=== PATIENT | male | born 1965 | race Caucasian/White ===

== ENCOUNTER 2019-07-02 09:35 | Emergency (ER) | payer BC ==
[~2019-07-02 09:35] MED LIST: OXYC-865 PO; PROM-110 PO
[2019-07-02] MEDS ORDERED: KETOROLAC 15 MG/ML VIAL IVP ONE (10:00)
[2019-07-02] MEDS ORDERED: ACETAMINOPHEN 500 MG TAB PO ONE (10:00)
--- NOTE | 2019-07-02 10:02 | ER Report ---
History and Physical Time Seen By MD: 09:51 Hx. of Stated Complaint: back and right arm pain HPI/ROS 54-year-old male with no significant past medical history who presents with s everal week history of right arm/shoulder discomfort. 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 He states that he has been having a dull ache worse with movement over the last 1-2 weeks was worse this morning when he woke up. He denies any left-sided chest pain, shortness of breath, exertional pain. Pain is significantly worse with movement of his right shoulder. He does not have any recent fevers, chills. No previous cardiac history. No direct trauma. Patient did take his 's cyclobenzaprine earlier this morning with no significant improvement in his symptoms. Allergies: Coded Allergies: No Known Drug Allergies (Unverified , 07/02/19) Home Meds Discontinued Reported Medications Oxycodone Hcl/Acetaminophen (PERCOCET 5-325 MG TABLET) 1 Each Tablet, 1-2 EACH PO Q4H PRN for PAIN, TAB 12/04/15 Discontinued Scripts Promethazine Hcl (PROMETHAZINE HCL) 25 Mg Tablet, 25 MG PO Q4H PRN for NAUSEA/VOMITING, #14 TAB Prov:NASRA YUENAmaury Hernandez DO 12/02/15 Oxycodone Hcl/Acetaminophen (PERCOCET 5-325 MG TABLET) 1 Each Tablet, 1-2 EACH PO Q4-6H PRN for pain, #30 Prov:NASRA YUENAmaury Hernandez DO 12/02/15 Reviewed Nurses Notes: Yes Old Medical Records Reviewed: Yes Hx Smoking: Yes (1 PPD X 32 YEARS) Smoking Status: Current: Every Day Smoker Hx Substance Use Disorder: No Hx Alcohol Use: Yes Constitutional Vital Sign - Last 24 Hours 07/02/19 07/02/19 07/02/19 07/02/19 09:36 09:42 10:05 10:23 Temp 97.5 Pulse 90 74 Resp 14 B/P (MAP) 210/136 (160) 210/136 192/125 (147) Pulse Ox 96 90 O2 Delivery Room Air 07/02/19 07/02/19 07/02/19 07/02/19 10:28 10:30 10:58 11:00 Pulse 76 75 Resp 19 14 B/P (MAP) 180/118 (138) 167/103 (124) Pulse Ox 90 91 Physical Exam General Appearance: Patient is awake and alert in no acute distress Respiratory: There are no retractions, lungs are clear to auscultation. Cardiovascular: Regular rate and rhythm.] Gastrointestinal: Abdomen is soft and non tender, no masses, bowel sounds normal. [Neurological:] No focal deficits. [Skin:] Warm and dry, no rashes. No lower extremity edema. [Musculoskeletal:] Pain with range of motion of his right shoulder including external rotation and abduction. There is no significant overlying erythema. The patient is able to actively range his shoulder. All other joints are nonpainful on full range of motion. Medical Decision Making Data Points Laboratory Chemistry Test 07/02/19 09:48 Troponin I < 0.012 ng/ml EKG/Imaging EKG Interpretation Normal sinus rhythm with sinus arrhythmia. Ventricular rate of 71. Intervals within normal limits. No significant ST or T-wave abnormalities concerning for ischemia. Monitor Interpretation: Normal Sinus Rhythm ED Course/Re-evaluation ED Course 54-year-old male with no significant past medical history who presents with worsening right shoulder pain over the last several weeks worse this morning. Patient is mechanically stable, afebrile. Physical exam is notable for pain in the right shoulder on external rotation as well as abduction. There is no overlying erythema, he has not febrile. He is able to actively range his right shoulder and therefore do not feel that this quickly represents septic arthritis. Given the patient has had significant overuse of the right arm with pitching for the [employer] team over the past month, high cli nical suspicion for repetitive microtrauma to his rotator cuff. Patient is neurovascularly intact otherwise and is not having any radicular symptoms concerning for potential cervical pathology. Given his age, we did obtain a screening EKG and a single troponin which is negative and therefore do not feel this represents an ACS equivalent. Discussed with patient that we will trial so me NSAIDs and lidocaine patch and have him follow up with primary care and physical therapy if he is still having pain. He is return to the emergency department if he develops any new or worsening symptoms. Patient and family were in agreement with discharge, follow-up, and return precautions. Decision to Disposition Date: Jul 02, 2019 Decision to Disposition Time: 11:25 Depart Departure Latest Vital Signs Vital Signs Date Time Temp Pulse Resp B/P (MAP) Pulse Ox O2 Delivery O2 Flow Rate FiO2 07/02/19 11:00 167/103 (124) 07/02/19 10:58 75 14 91 07/02/19 09:42 97.5 Room Air Impression: Primary Impression: Right shoulder pain Condition: Improved Disposition: HOME OR SELF-CARE Referrals: SAURABH YI MD New Scripts Omeprazole (OMEPRAZOLE) 20 Mg Capsule.dr 1 CAP PO BID for 10 Days, #20 CAP 0 Refills Prov: BRENNA PEREZ MD 07/02/19 Diclofenac Potassium (DICLOFENAC POTASSIUM) 50 Mg Tablet 50 MG PO BID for PAIN for 10 Days, #20 TAB 0 Refills Prov: BRENNA PEREZ MD 07/02/19 Departure Forms: ER Transition Record, Medications Reconciliation, Off Work/School Form, School or Work Release?: Work Number of days to be released: 2 Patient Portal Information Patient Instructions: Exercises for Shoulder Abduction and Adduction (ED) BRENNA PEREZ MD Jul 02, 2019 10:02
--- NOTE | 2019-07-02 10:44 | RADIOLOGY IMAGING REPORT ---
[place] [facility] [place] NAME[place] Jorge Luis Vogel : 1965 MR: [id number] V: [id number] EXAM DATE: ORDERING PHYSICIAN: BRENNA PEREZ TECHNOLOGIST: Location: [facility] - [place] Patient: Jorge Luis Vogel : 1965 Visit/Account:[id number] Date of Sevice: 07/02/2019 SHOULDER MIN 2 VIEWS RIGHT History: Right shoulder pain starting this morning. Comparison study: None. Findings: There is diffuse osteopenia but there is no finding of a fracture. There are minimal degenerative changes involving acromioclavicular joint. IMPRESSION: 1. Degenerative changes without findings of a fracture or dislocation. Report Dictated By: Josh Comer MD at 07/02/2019 10:36 AM Report E-Signed By: Josh Comer MD at 07/02/2019 10:37 AM WSN:[id number]
[2019-07-02 11:00] VITALS: BP 167/103
[2019-07-02] MEDS ORDERED: DICL-190 PO (11:30)
[2019-07-02] MEDS ORDERED: OMEP-126 PO (11:30)
--- NOTE | 2019-07-02 12:18 | EKG ---
FACILITY: [facility] - [place] PATIENT NAME: GELY WALTON : [id number] MR: [id number]: [id number] EXAM DATE: ORDERING PHYSICIAN: BRENNA PEREZ TECHNOLOGIST: SANIA Test Reason : ARM PAIN Blood Pressure : / mmHG Vent. Rate : 071 BPM Atrial Rate : 071 BPM P-R Int : 160 ms QRS Dur : 092 ms QT Int : 384 ms P-R-T Axes : 051 065 044 degrees QTc Int : 417 ms Sinus rhythm with marked sinus arrhythmia Otherwise normal ECG Confirmed by JOHAN MACIAS ([id number]) on 07/02/2019 6:14:18 PM Referred By: ANA Confirmed By:JOHAN MACIAS
== END 2019-07-02 11:42 | disposition home or self-care (01) ==
LOC: ER 10:23
DX: M25.511 Pain in right shoulder (principal); I49.9 Cardiac arrhythmia, unspecified
CPT/HCPCS: 73030; 84484; 93005; 99284; J1885; 96374

== ENCOUNTER 2019-07-03 23:42 | Emergency (ER) | payer BC ==
[~2019-07-03 23:42] MED LIST changes: +DICL-190 PO; +OMEP-126 PO
--- NOTE | 2019-07-03 23:54 | ER Report ---
History and Physical Time Seen By MD: 23:50 Hx. of Stated Complaint: possible pinched nerve in neck. has mri scheduled for tomorrow. pt has shooting pain down right arm. HPI/ROS CHIEF COMPLAINT: neck pain with shooting to right arm. HISTORY OF PRESENT ILLNESS: This is a 54 year old male. He has pain in the neck with shooting into right arm. Severe pain tonight, uncontrollable with spasming. Has MRI scheduled for this morning at [facility]. Started on steroids today, taking oxycodone left over from oral surgery without relief. Pain is becoming unbearable. Has some numbness in thumb. No weakness. Pain i mproves somewhat with placing arm overhead. Seems to worsen with movement of neck or shoulder. No fevers or chills. No loss of control of bowel or bladder function. No weakness in legs or arms/hands. Allergies: Coded Allergies: No Known Drug Allergies (Unverified , 07/02/19) Home Meds Active Scripts Hydromorphone Hcl (DILAUDID) 2 Mg Tablet, 1 MG PO Q4H PRN for PAIN, #8 TAB 0 Refills Prov:DENISE LIRA MD 07/04/19 Diazepam (VALIUM) 5 Mg Tablet, 5 MG PO Q6H PRN for MUSCLE SPASMS, #15 TAB 0 Refills Prov:DENISE LIRA MD 07/04/19 Omeprazole (OMEPRAZOLE) 20 Mg Capsule.dr, 1 CAP PO BID for 10 Days, #20 CAP 0 Refills Prov:BRENNA PEREZ MD 07/02/19 Diclofenac Potassium (DICLOFENAC POTASSIUM) 50 Mg Tablet, 50 MG PO BID for PAIN for 10 Days, #20 TAB 0 Refills Prov:BRENNA PEREZ MD 07/02/19 Discontinued Reported Medications Oxycodone Hcl/Acetaminophen (PERCOCET 5-325 MG TABLET) 1 Each Tablet, 1-2 EACH PO Q4H PRN for PAIN, TAB 12/04/15 Discontinued Scripts Promethazine Hcl (PROMETHAZINE HCL) 25 Mg Tablet, 25 MG PO Q4H PRN for NAUSEA/VOMITING, #14 TAB Prov:JA YUEN DO 12/02/15 Oxycodone Hcl/Acetaminophen (PERCOCET 5-325 MG TABLET) 1 Each Tablet, 1-2 EACH PO Q4-6H PRN for pain, #30 Prov:JA YUEN DO 12/02/15 Reviewed Nurses Notes: Yes Hx Smoking: Yes (1 PPD X 32 YEARS) Smoking Status: Current: Every Day Smoker Hx Substance Use Disorder: No Hx Alcohol Use: Yes Constitutional Vital Sign - Last 24 Hours 07/03/19 07/03/19 07/04/19 07/04/19 23:42 23:49 00:00 00:30 Temp 98.0 Pulse 90 Resp 20 B/P (MAP) 213/201 (205) 200/100 192/121 (144) 176/129 (145) Pulse Ox 97 O2 Delivery Room Air 07/04/19 07/04/19 07/04/19 07/04/19 00:42 01:00 01:30 02:00 Pulse 65 85 B/P (MAP) 179/111 (133) 184/126 (145) 150/127 (135) Pulse Ox 88 96 07/04/19 07/04/19 07/04/19 07/04/19 02:30 03:00 03:30 04:00 Pulse 78 59 B/P (MAP) 162/105 (124) 150/126 (134) 150/111 (124) 164/123 (137) Pulse Ox 93 95 94 93 07/04/19 07/04/19 07/04/19 07/04/19 04:30 05:00 05:05 05:30 Pulse 61 60 60 B/P (MAP) 158/118 (131) 169/112 (131) 162/115 (131) Pulse Ox 94 95 93 07/04/19 07/04/19 07/04/19 07/04/19 05:35 06:00 06:05 06:30 Pulse 59 60 B/P (MAP) 153/101 (118) 156/102 (120) Pulse Ox 95 95 07/04/19 06:35 Pulse 65 Pulse Ox 92 Intake and Output 07/03/19 07/03/19 07/04/19 15:03 23:03 07:03 Intake Total 2000 ml Balance 2000 ml Physical Exam General Appearance: The patient is alert. No acute distress. Eyes: Pupils are equal, round. No pallor, injection or icterus. ENT: Mucous membranes are moist. Normal oral mucosa. Posterior oropharynx is normal. Neck: Supple and non tender. Respiratory: Lungs are clear to auscultation. Cardiovascular: Regular rate and rhythm. No murmurs, gallops or rubs. Normal capillary refill. Normal peripheral pulse. Neurological: Alert and oriented x3. Normal sensation in hand/arm other than tip of right thumb. Normal in legs. Equal strength in arms/membership advisor. Skin: Warm and dry. No rashes. Musculoskeletal: Extremities are nontender to palpation. No tenderness in palp ation of the shoulder, but some near the cervical spine. DIFFERENTIAL DIAGNOSIS: After history and physical exam, differential diagnosis was considered for pain in right arm, appears most likely to be radicular pain. Medical Decision Making Data Points Result Diagram: 07/04/19 0016 07/04/19 0016 Laboratory Hematology Test 07/04/19 00:16 White Blood Count 10.5 k/uL (4.5-11.0) Red Blood Count 5.64 M/uL (4.00-5.60) H Hemoglobin 18.1 g/dL (14.0-18.0) H Hematocrit 51.6 % (42.0-52.0) Mean Corpuscular Volume 91.4 fL (80.0-96.0) Mean Corpuscular Hemoglobin 32.2 pg (26.0-33.0) Mean Corpuscular Hemoglobin Concent 35.2 g/dL (32.0-36.0) Red Cell Distribution Width 13.5 % (11.5-14.5) Platelet Count 363 K/uL (150-450) Mean Platelet Volume 7.1 fL (7.2-11.1) L Neutrophils (%) (Auto) 89.2 % (39.4-72.5) H Lymphocytes (%) (Auto) 6.4 % (17.6-49.6) L Monocytes (%) (Auto) 4.3 % (4.1-12.4) Eosinophils (%) (Auto) 0.0 % (0.4-6.7) L Basophils (%) (Auto) 0.1 % (0.3-1.4) L Nucleated RBC Relative Count (auto) 0.0 /100WBC Neutrophils # (Auto) 9.3 K/uL (2.0-7.4) H Lymphocytes # (Auto) 0.7 K/uL (1.3-3.6) L Monocytes # (Auto) 0.4 K/uL (0.3-1.0) Eosinophils # (Auto) 0.0 K/uL (0.0-0.5) Basophils # (Auto) 0.0 K/uL (0.0-0.1) Nucleated RBC Absolute Count (auto) 0.00 K/uL Erythrocyte Sedimentation Rate 19 mm/HOUR (0-20) Chemistry Test 07/04/19 00:16 Sodium Level 134 mmol/L (137-145) Potassium Level 4.4 mmol/L (3.5-5.0) Chloride Level 100 mmol/L (98-107) Carbon Dioxide Level 21 mmol/L (22-30) Blood Urea Nitrogen 10 mg/dl (9-21) Creatinine 0.80 mg/dl (0.66-1.25) Glomerular Filtration Rate Calc > 60.0 Random Glucose 130 mg/dl (75-110) Calcium Level 10.0 mg/dl (8.4-10.2) Magnesium Level 2.1 mg/dl (1.7-2.2) Total Bilirubin 0.5 mg/dl (0.2-1.3) Aspartate Amino Transf (AST/SGOT) 28 U/L (0-35) Alanine Aminotransferase (ALT/SGPT) 51 U/L (0-56) Alkaline Phosphatase 86 U/L (0-126) C-Reactive Protein < 0.5 mg/dl (<1.0) Total Protein 8.8 g/dl (6.3-8.2) Albumin 4.9 g/dl (3.5-5.0) ED Course/Re-evaluation Clinical Indication for ER IV: Hydration, IV Access ED Course Initially goal was just to try and get the pain under control. Patient had no signs of weakness. Given a liter of normal saline, Dilaudid 1mg IV, and Norflex 30mg IV. Added Decadron 10mg IV as well. Patient had good relief of pain, but temporary, and came back. Spasming seemed to be the worst problem at this time. A second dose of 0.5mg IV Dilaudid was given. Patient had a 2mg oral dose of Dilaudid and Flexeril 10mg oral dose to provide relief and not wear off. Minimal success with this. Toradol 30mg IV, Dilaudid 0.5mg IV, and another liter of normal saline given. Still with intermittent pain. Valium 10mg oral dose given. Patient is sleeping, but still with intermittent pain. Plan will be to contact [facility] and see about discharging from the ER to their office for MRI, versus just having it done here at the hospital depending on the patient's pain level and affects of medications and timing. Later, the patient was much better, and decided to return home with medications and follow-up with MRI at [facility] as planned later today. Decision to Disposition Date: Jul 04, 2019 Decision to Disposition Time: 04:58 Depart Departure Latest Vital Signs Vital Signs Date Time Temp Pulse Resp B/P (MAP) Pulse Ox O2 Delivery O2 Flow Rate FiO2 07/04/19 06:35 65 92 07/04/19 06:30 156/102 (120) 07/03/19 23:49 98.0 20 Room Air Impression: Primary Impression: Radiculitis of right cervical region Condition: Improved Disposition: HOME OR SELF-CARE New Scripts Hydromorphone Hcl (DILAUDID) 2 Mg Tablet 1 MG PO Q4H PRN for PAIN, #8 TAB 0 Refills Prov: DENISE LIRA MD 07/04/19 Diazepam (VALIUM) 5 Mg Tablet 5 MG PO Q6H PRN for MUSCLE SPASMS, #15 TAB 0 Refills Prov: DENISE LIRA MD 07/04/19 Patient Instructions: Cervical Radiculopathy (ED) Additional Instructions: Valium 5mg, take one every 6 hours as needed for muscle spasms and pain. Dilaudid 2mg, take 1/2 to one every 4 hours as needed for severe pain. Follow-up for your MRI at [facility] today as planned. DENISE LIRA MD Jul 03, 2019 23:54
[2019-07-04] MEDS ORDERED: HYDROMORPHONE HCL 1 MG/ML SYRINGE IVP ONE ×3 (00:05→02:35)
[2019-07-04] MEDS ORDERED: DEXAMETHASONE SOD PHOS 10MG/ML IVP ONE (00:05)
[2019-07-04] MEDS ORDERED: NS(*) 0.9% 1000 ML BAG 1,000 ML IV ONE ×2 (00:05→02:30)
[2019-07-04] MEDS ORDERED: ORPHENADRINE 60MG/2ML INJ IVP ONE (00:05)
[2019-07-04 00:47] LABS: PLATELET COUNT, AUTOMATED 363 K/uL (150-450)
[2019-07-04] MEDS ORDERED: KETOROLAC 30 MG/ML VIAL IVP ONE (01:45)
[2019-07-04] MEDS ORDERED: CYCLOBENZAPRINE HCL 10 MG TAB PO ONE (01:45)
[2019-07-04] MEDS ORDERED: HYDROmorphone HCL 2 MG TAB PO ONE (01:45)
[2019-07-04] MEDS ORDERED: DIAZEPAM 10 MG TAB PO ONE (02:40)
[2019-07-04] MEDS ORDERED: APAP/HYDROCODONE 325/5 TAB PO ONE (05:25)
[2019-07-04 06:30] VITALS: BP 156/102
[2019-07-04] MEDS ORDERED: HYDROmorphone 2 MG TAB TH 2 TAB/BOTTLE PO ONE (07:25)
[2019-07-04] MEDS ORDERED: DIAZEPAM 5 MG TAB TH 2 TAB/BOTTLE PO ONE (07:25)
[2019-07-04] MEDS ORDERED: DIA5 PO (07:29)
[2019-07-04] MEDS ORDERED: HYDR2TAB74 PO (07:29)
== END 2019-07-04 07:41 | disposition home or self-care (01) ==
LOC: ER 23:49
DX: M54.12 Radiculopathy, cervical region (principal)
CPT/HCPCS: 83735; 85025; 85651; 86140; 96361; 96374; 96375; 96376; 99284; A9270; J1100; J1170; J1885; J2360; J7030; 82040; 82247; 82310; 82374; 82435; 82565; 82947; 84075; 84132; 84155; 84295; 84450; 84460; 84520